=== PATIENT | male | born 1940 | race Caucasian/White ===

== ENCOUNTER 2019-10-10 13:02 | Observation (INO) | payer MEDICARE, SELFPAY ==
[2019-10-10 13:14] VITALS: BP 131/65; PULSE 80; RESP 17; TEMP 37.1; O2SAT 100
--- NOTE | 2019-10-10 13:20 | ED.GIBLEED ---
HPI - GI Bleed General Chief complaint: GI Bleed Stated complaint: abnormal labs Time Seen by Provider: 10/10/19 13:19 Source: patient Mode of arrival: ambulatory Limitations: no limitations History of Present Illness HPI Narrative: Pt is a 79 y/o male who presents to the ED with c/o melena for 2 days. Pt has been seeing his PCP for the last month for intermittent ABD pain and indigestion. Pt is supposed to get a colonoscopy tomorrow by Dr. Schafer. He states that his indigestion gets worse after eating. He denies any alleviating factors. Pt reports generalized weakness, but denies hematochezia. He also reports BLE swelling d/t his H/O CHF. Pt is on ASA 81mg, Plavix, and Coumadin as his anticoagulation therapy for his H/O AFIB and CABG. He is a non-smoker and a non-drinker. Pt is a DNR. MD complaint: melena Onset (ago): day(s) (2) Pain Consistency: constant Relieving factors: none Exacerbating factors: none Context: anticoagulant use Associated symptoms: abdominal pain, weakness and other (acid reflux) Related Data Home Medications Medication Instructions Recorded Confirmed albuterol sulfate 90 mcg/actuation 1 puff INHALATION Q4H PRN 08/27/19 aerosol inhaler ferrous sulfate 325 mg (65 mg 325 mg PO DAILY 08/27/19 iron) tablet,delayed release furosemide 40 mg tablet 40 mg PO QAM 08/27/19 losartan 100 mg tablet 100 mg PO DAILY 08/27/19 amiodarone 200 mg tablet 200 mg PO DAILY 08/28/19 aspirin 81 mg tablet,delayed 81 mg PO DAILY 08/28/19 release cholecalciferol (vitamin D3) 25 1,000 unit PO DAILY 08/28/19 mcg (1,000 unit) capsule cholestyramine (with sugar) 4 gram 4 gm PO BID 08/28/19 oral powder cyanocobalamin (vitamin B-12) 100 100 mcg PO DAILY 08/28/19 mcg tablet cyclosporine 0.05 % eye drops in a 1 drop EACH EYE Q12H 08/28/19 dropperette exenatide microspheres 2 mg/0.65 2 mg SUB-Q Q7D 08/28/19 mL subcutaneous pen injector finasteride 5 mg tablet 5 mg PO DAILY 08/28/19 fluticasone fur. 100 mcg-umeclid 1 inhalation INHALATION DAILY 08/28/19 62.5 mcg-vilant 25 mcg inhalat.powder magnesium gluconate 500 mg tablet 500 mg PO DAILY 08/28/19 metformin 500 mg tablet 500 mg PO DAILY 08/28/19 vweukowq-lnc-zpzym acid 300 1 tablet PO DAILY 08/28/19 mcg-lycopene 600 mcg-lutein 300 mcg tablet nitroglycerin 0.4 mg sublingual 0.4 mg SUBLINGUAL Q5M PRN 08/28/19 tablet omega-3 acid ethyl esters 1 gram 1 cap PO DAILY 08/28/19 capsule pantoprazole 40 mg tablet,delayed 40 mg PO QAM 08/28/19 release potassium chloride 20 mEq 20 meq PO DAILY 08/28/19 tablet,extended release roflumilast 500 mcg tablet 500 mcg PO DAILY 08/28/19 saxagliptin 5 mg tablet 5 mg PO DAILY 08/28/19 tramadol 50 mg tablet 50 mg PO Q6H PRN 08/28/19 warfarin 2 mg tablet 2 mg PO QMWF 08/28/19 Allergies Allergy/AdvReac Type Severity Reaction Status Date / Time pregabalin Allergy Unknown unk Verified 10/10/19 13:25 Review of Systems Review of Systems: All systems reviewed & are unremarkable except as noted in HPI and below Constitutional: Constitutional: Reports weakness (generalized) Cardiovascular: Cardiovascular: Reports leg edema (BLE) Gastrointestinal: Gastrointestinal: Reports abdominal pain, Reports melena, Denies hematochezia and Reports other (acid reflux) [facility] Past Medical History Medical History Afib Ankle fracture Aortic aneurysm Arthritis CAD (coronary artery disease) of artery bypass graft CHF (congestive heart failure) Chronic interstitial lung disease CLL (chronic lymphocytic leukemia) Diabetes mellitus GERD (gastroesophageal reflux disease) High cholesterol HTN (hypertension) Mixed restrictive and obstructive lung disease Myocardial infarction ROBE (obstructive sleep apnea) Pacemaker Peripheral neuropathy Pulmonary emphysema Rectal polyp TIA (transient ischemic attack) Surgical History Surgical History (Reviewed
[2019-10-10] MEDS: PANTOPRAZOLE SODIUM IV 40 MG VIAL IV PUSH ×2 (13:52→21:04)
[2019-10-10] MEDS: SODIUM CHLORIDE 0.9% IV 1,000 ML 500 ML IV CONT (13:52)
[2019-10-10 13:57] LABS: Basophils Absolute Auto 0.1 K/mm3 (0.0-0.1); Basophils Percent Auto 0.8 % (0.2-1.2); Eosinophils Absolute Auto 0.2 K/mm3 (0-0.3); Eosinophils Percent Auto 1.7 % (0-4.4); Hematocrit 28.5 % (42.0-52.0); Hemoglobin 8.5 g/dL (14.0-18.0); Immature Granulocyte Absolute 0.04 K/mm3 (0.00-0.031); Immature Granulocyte Percent A 0.4 % (0-0.5); Lymphocytes Absolute Auto 4.15 K/mm3 (0.9-3.2); Lymphocytes Percent Auto 41.8 % (18.3-44.2); Mean Corpuscular HGB Conc 29.8 g/dl (32-36); Mean Corpuscular Hemoglobin 25.1 pg (26-34); Mean Corpuscular Volume 84.1 fl (80-100); Monocytes Percent Auto 9.6 % (2.6-8.5); Neutrophils Absolute Auto 4.6 K/mm3 (1.3-6.7); Neutrophils Percent Auto 45.7 % (45.5-73.1); Platelet Count Result 262 k/mm3 (150-375); Red Blood Count 3.39 M/mm3 (4.6-6.20); Red Cell Distribution Width 15.1 % (11.5-14.5); White Blood Count 9.9 K/mm3 (4.5-10.0)
[2019-10-10 14:07] LABS: INR 1.4; Prothrombin Time 17.1 Seconds (11.1-14.7)
[2019-10-10 14:08] LABS: Partial Thromboplastin Time 33.3 SECONDS (22.3-36.8)
[2019-10-10 14:13] LABS: Alanine Aminotransferase 24 U/L (4-50); Albumin Level 4.1 g/dL (3.5-5.1); Alkaline Phosphatase 95 U/L (38-126); Aspartate Amino Transferase 31 U/L (17-59); Bilirubin,Total 1.5 mg/dL (0.2-1.3); Blood Urea Nitrogen 25 mg/dL (9-20); Calcium 9.4 mg/dL (8.4-10.2); Carbon Dioxide 24 mmol/L (22-30); Chloride 104 mmol/L (98-107); Estimated CRCL calculation 43 ml/min; Estimated Glomerular Filt Rate 58; Glucose 117 mg/dL (75-110); Potassium 3.6 mmol/L (3.4-5.0); Sodium 139 mmol/L (137-145)
[2019-10-10 14:16] LABS: Burr Cells 1+ (NORMAL); Ovalocytes 2+ (NORMAL); Platelet Estimate Adequate (Adequate)
[2019-10-10 16:00] VITALS: BP 152/79; PULSE 83; RESP 16; TEMP 36.5; O2SAT 100; BMI 25.7
--- NOTE | 2019-10-10 17:00 | ADMGEN ---
This patient, Siddharth Heredia, was admitted to Medical Room 340-01. Patient/family oriented to hospital policies and general routines including ID bracelet, bed and alarms, visiting hours, pain management, procedures, bathroom and other care routines, personal items, smoking policy, room service/diet, and visiting hours. Valuables list has been completed. Information on how to activate the Rapid Response Team has been discussed. Patient/Family are encouraged to report perceived risks to care and to ask questions if they do not understand what they are told or what they should do.
[2019-10-10 17:32] LABS: Hematocrit 26.1 % (42.0-52.0); Hemoglobin 7.9 g/dL (14.0-18.0)
[2019-10-10 18:01] VITALS: BMI 25.7
[2019-10-10 20:00] VITALS: BP 145/81; PULSE 91; RESP 16; TEMP 36.2; O2SAT 99
[2019-10-10 23:30] LABS: Hematocrit 24.5 % (42.0-52.0); Hemoglobin 7.6 g/dL (14.0-18.0)
[2019-10-11] VITALS (13 sets, daily range): BP systolic 109–168; BP diastolic 56–79; PULSE 51–88; RESP 16–18; TEMP 36–36.9; O2SAT 98–100; BMI 25.7
[2019-10-11 01:19] LABS: Glucose Point of Care 102 (65-105)
[2019-10-11 06:20] LABS: Glucose Point of Care 111 (65-105)
[2019-10-11 06:20] LABS: Basophils Absolute Auto 0.1 K/mm3 (0.0-0.1); Basophils Percent Auto 0.8 % (0.2-1.2); Eosinophils Absolute Auto 0.2 K/mm3 (0-0.3); Eosinophils Percent Auto 2.1 % (0-4.4); Hematocrit 24.6 % (42.0-52.0); Hemoglobin 7.6 g/dL (14.0-18.0); Immature Granulocyte Absolute 0.02 K/mm3 (0.00-0.031); Immature Granulocyte Percent A 0.3 % (0-0.5); Lymphocytes Absolute Auto 3.43 K/mm3 (0.9-3.2); Lymphocytes Percent Auto 45.7 % (18.3-44.2); Mean Corpuscular HGB Conc 30.9 g/dl (32-36); Mean Corpuscular Hemoglobin 25.9 pg (26-34); Mean Platelet Volume 11.1 fl (7.4-10.4); Monocytes Absolute Auto 0.7 K/mm3 (0.1-0.6); Monocytes Percent Auto 9.7 % (2.6-8.5); Neutrophils Absolute Auto 3.1 K/mm3 (1.3-6.7); Neutrophils Percent Auto 41.4 % (45.5-73.1); Platelet Count Result 223 k/mm3 (150-375); Red Blood Count 2.93 M/mm3 (4.6-6.20); Red Cell Distribution Width 15.1 % (11.5-14.5); White Blood Count 7.5 K/mm3 (4.5-10.0)
[2019-10-11 06:30] LABS: INR 1.4; Prothrombin Time 16.9 Seconds (11.1-14.7)
[2019-10-11] MEDS: PANTOPRAZOLE SODIUM IV 40 MG VIAL IV PUSH (09:11)
--- NOTE | 2019-10-11 09:35 | PC.NURSE ---
Report called to [facility].
--- NOTE | 2019-10-11 09:55 | PC.NURSE ---
To GI [facility] via [facility].
[2019-10-11] MEDS: LACTATED RINGERS 1,000 ML 150 ML IV CONT (10:27)
--- NOTE | 2019-10-11 10:32 | WPDANESEPPF ---
Anes - Initial Pre Proc Eval Procedure: Operation Date: 10/11/19 11:30 Proposed Procedures p Esophagogastroduodenoscopy - Tonio Vang MD Date/Time: 10/11/19 10:32 Surgeon: Suzanna Calvin MD Pre Op Diagnosis: Gi bleed/anemia Patient Data Age: 79 Gender: M Height: 1.73 m Weight: 76.6 kg Last Vital Signs Temp 36.0 C L 10/11/19 10:11 Pulse 88 10/11/19 10:11 Resp 16 10/11/19 10:11 BP 161/74 H 10/11/19 10:11 Pulse Ox 100 10/11/19 10:11 Allergies Allergy/AdvReac Type Severity Reaction Status Date / Time pregabalin Allergy Unknown unk Verified 10/11/19 10:09 Home Medications Medication Instructions Recorded Confirmed Type ferrous sulfate 325 mg (65 mg 325 mg PO DAILY 08/27/19 10/10/19 History iron) tablet,delayed release furosemide 40 mg tablet 40 mg PO QAM 08/27/19 10/10/19 History aspirin 81 mg tablet,delayed 81 mg PO DAILY 08/28/19 10/10/19 History release cholecalciferol (vitamin D3) 25 800 unit PO DAILY 08/28/19 10/10/19 History mcg (1,000 unit) capsule cholestyramine (with sugar) 4 gram 4 gm PO BID 08/28/19 10/10/19 History oral powder cyanocobalamin (vitamin B-12) 100 100 mcg PO DAILY 08/28/19 10/10/19 History mcg tablet finasteride 5 mg tablet 5 mg PO DAILY 08/28/19 10/10/19 History fluticasone fur. 100 mcg-umeclid 1 inhalation INHALATION DAILY 08/28/19 10/10/19 History 62.5 mcg-vilant 25 mcg inhalat.powder magnesium gluconate 500 mg tablet 500 mg PO DAILY 08/28/19 10/10/19 History sthnsvwk-klq-ithzs acid 300 1 tablet PO DAILY 08/28/19 10/10/19 History mcg-lycopene 600 mcg-lutein 300 mcg tablet nitroglycerin 0.4 mg sublingual 0.4 mg SUBLINGUAL Q5M PRN 08/28/19 10/10/19 History tablet pantoprazole 40 mg tablet,delayed 40 mg PO QAM 08/28/19 10/10/19 History release potassium chloride 20 mEq 20 meq PO DAILY 08/28/19 10/10/19 History tablet,extended release roflumilast 500 mcg tablet 500 mcg PO DAILY 08/28/19 10/10/19 History saxagliptin 5 mg tablet 5 mg PO DAILY 08/28/19 10/10/19 History tramadol 50 mg tablet 50 mg PO Q6H PRN 08/28/19 10/10/19 History warfarin 2 mg tablet 2 mg PO DAILY 08/28/19 10/10/19 History atorvastatin 40 mg PO DAILY 10/10/19 10/10/19 History carvedilol 12.5 mg PO BID 10/10/19 10/10/19 History losartan [Cozaar] 12.5 mg PO DAILY 10/10/19 10/10/19 History metformin 500 mg PO BID 10/10/19 10/10/19 History Laboratory Tests 10/10/19 10/10/19 10/10/19 13:49 13:49 13:49 WBC 9.9 K/mm3 K/mm3 (4.5-10.0) RBC 3.39 M/mm3 L M/mm3 (4.6-6.20) Hgb 8.5 g/dL L g/dL (14.0-18.0) Hct 28.5 % L % (42.0-52.0) MCV 84.1 fl fl (80-100) MCH 25.1 pg L pg (26-34) MCHC 29.8 g/dl L g/dl (32-36) RDW 15.1 % H % (11.5-14.5) Plt Count 262 k/mm3 k/mm3 (150-375) MPV 11.0 fl H fl (7.4-10.4) Immature Gran % (Auto) 0.4 % % (0-0.5) Neut % (Auto) 45.7 % % (45.5-73.1) Lymph % (Auto) 41.8 % % (18.3-44.2) [place] % (Auto) 9.6 % H % (2.6-8.5) Eos % (Auto) 1.7 % % (0-4.4) Baso % (Auto) 0.8 % % (0.2-1.2) Lymph # (Auto) 4.15 K/mm3 H K/mm3 (0.9-3.2) [place] # (Auto) 1.0 K/mm3 H K/mm3 (0.1-0.6) Eos # (Auto) 0.2 K/mm3 K/mm3 (0-0.3) Baso # (Auto) 0.1 K/mm3 K/mm3 (0.0-0.1) Abs Immat Gran (auto) 0.04 K/mm3 H K/mm3 (0.00-0.031) Absolute Neuts (auto) 4.6 K/mm3 K/mm3 (1.3-6.7) Absolute Nucleated RBC 0.0 K/mm3 K/mm3 (0.0-0.012) Nucleated RBC % 0.0 % % (0.0-0.2) Platelet Estimate Adequate (Adequate) Ovalocytes 2+ (NORMAL) Benjamin Cells 1+ (NORMAL) PT 17.1 Seconds H Seconds (11.1-14.7) INR 1.4 APTT 33.3 SECONDS SECONDS (22.3-36.8) Sodium 139 mmol/L mmol/L (137-145) Potassium 3.6 mmol/L mmol/L
[2019-10-11 12:36] LABS: Glucose Point of Care 59 (65-105)
[2019-10-11 12:36] LABS: Glucose Point of Care 79 (65-105)
[2019-10-11] MEDS: ROFLUMILAST 500 MCG TABLET PO (13:15)
[2019-10-11] MEDS: FUROSEMIDE 40 MG TABLET PO (13:15)
[2019-10-11] MEDS: FINASTERIDE 5 MG TABLET PO (13:15)
[2019-10-11] MEDS: FERROUS SULFATE 324 MG TABLET PO (13:15)
[2019-10-11] MEDS: POTASSIUM CHLORIDE 20 MEQ TABLET.ER PO (13:16)
[2019-10-11] MEDS: LOSARTAN POTASSIUM 25 MG TABLET 12.5 MG PO (13:17)
[2019-10-11] MEDS: carvediloL 12.5 MG TABLET PO (16:44)
[2019-10-11] MEDS: CHOLESTYRAMINE LIGHT 4 GM POWD.PACK PO (16:44)
--- NOTE | 2019-10-11 16:48 | WPDGICN ---
Assessment and Plan Assessment and plan (1) Acute GI bleeding: Code(s): K92.2 - Gastrointestinal hemorrhage, unspecified Status: Acute Assessment and Plan: will proceed with EGD- he has been holding his coumadin but still on aspirin and plavix. more recommendation after egd monitor for signs of bleeding, check h/h (2) Acute on chronic blood loss anemia: Code(s): D62 - Acute posthemorrhagic anemia Status: Acute (3) CAD (coronary artery disease) of artery bypass graft: Qualifiers: [place] vs. transplanted heart: [place] heart Associated angina: angina presence unspecified Qualified Code(s): I25.810 - Atherosclerosis of coronary artery bypass graft(s) without angina pectoris Code(s): I25.810 - Atherosclerosis of coronary artery bypass graft(s) without angina pectoris Status: Acute Assessment and Plan: on meds, no chest pain (4) Mixed restrictive and obstructive lung disease: Code(s): J43.9 - Emphysema, unspecified; J98.4 - Other disorders of lung Status: Acute Assessment and Plan: chronic shortness of breath (5) CLL (chronic lymphocytic leukemia): Code(s): C91.10 - Chronic lymphocytic leukemia of B-cell type not having achieved remission Status: Acute (6) Diabetes mellitus: Qualifiers: Diabetes mellitus type: type 2 Diabetes mellitus retirement insulin use: unspecified retirement insulin use status Diabetes mellitus complication status: with hyperglycemia Qualified Code(s): E11.65 - Type 2 diabetes mellitus with hyperglycemia Code(s): E11.9 - Type 2 diabetes mellitus without complications Status: Acute (7) Melena: Code(s): K92.1 - Melena Status: Acute Assessment and Plan: on ppi bid, will check with EGD today GI Consult Note Consult date/time: 10/11/19 09:30 Reason for consult: I met him just few weeks ago when he came to see me at my office because worsening gerd symptoms. He has multiple problems including CAD a/p CABG June 2019 at [facility] in [facility], COPD, ROBE, interstitial lung diseease, DM, CLL and is on aspirin, plavix and also coumadin. I was supposed to do EGD today as outpatient but last 2 days got sicker and noted dark stools, his hb was 8 range (08/2019 hb was 11) and he was admitted to the hospital. He was using at home protonix and added carafate without much relief. He told me that had EGD with colonoscopy about 2-3 years ago (had polyps). No bleeding since admission and he is npo now. He also has been holding his coumadin last 5 days in preparation for his EGD. HPI: Siddharth Heredia is a 79 year old male Review of Systems Constitutional: Constitutional: Reports fatigue and Denies headache(s) Eyes: Eyes: Denies blurry vision ENT: Reports Normal hearing present, Denies headache(s) and Denies neck pain Cardiovascular: Cardiovascular: Denies chest pain and Denies dyspnea Respiratory: Respiratory: Reports cough Gastrointestinal: Gastrointestinal: Reports no additional gastrointestinal complaints Genitourinary: Genitourinary: Denies dysuria Musculoskeletal: Musculoskeletal: Denies neck pain Integumentary/Breasts: Skin/Breast: Denies dry skin Neurologic: Reports Normal hearing present, Denies headache(s) and Denies weakness Psychiatric: Psychiatric: Denies anxiety Endocrine: Endocrine: Denies change in body appearance Hematologic/Lymphatic: Hematologic/Lymphatic: Denies easy bleeding Allergic/Immunologic: Allergic/Immunologic: Denies urticaria PMFSH Past Medical History Medical History (Updated 10/11/19 @ 16:56 by Tonio Vang MD) Acute on chronic blood loss anemia Afib Ankle fracture Aortic aneurysm Arthritis CAD (coronary artery disease) of artery bypass graft CHF (congestive heart failure) Chronic interstitial lung disease CLL (chronic lymphocytic leukemia) Diabetes mellitus GERD (gastroesophageal reflux disease) [place]
--- NOTE | 2019-10-11 16:55 | PM.IMHP ---
H&P: HPI History of Present Illness Chief complaint: Gi bleed/anemia Narrative: Siddharth Heredia is a 79 year old male, pt know to GI was meant to have ED today, pt had some melanic stool, pt came to ED for evaluation. Pt hb was 7.6. Pt had EGD under GI which showed gastritis. Pt other problems are CAD a/p CABG in June 2019, COPD, ROBE, interstitial lung disease, DM, CLL. Pt is on warfarin and aspirin. No further bleeding reported. Review of Systems Review of Systems: All systems reviewed & are unremarkable except as noted in HPI and below PMFSH Past Medical History Medical History Acute on chronic blood loss anemia Afib Ankle fracture Aortic aneurysm Arthritis CAD (coronary artery disease) of artery bypass graft CHF (congestive heart failure) Chronic interstitial lung disease CLL (chronic lymphocytic leukemia) Diabetes mellitus GERD (gastroesophageal reflux disease) High cholesterol HTN (hypertension) Melena Mixed restrictive and obstructive lung disease Myocardial infarction ROBE (obstructive sleep apnea) Pacemaker Peripheral neuropathy Pulmonary emphysema Rectal polyp TIA (transient ischemic attack) Surgical History Surgical History H/O bilateral cataract extraction H/O heart artery stent History of right inguinal hernia repair Hx of CABG 06/2019 Family History Family History Sibling Family history of malignant neoplasm Family history of pancreatic cancer Family history of lung cancer Father Family history of malignant neoplasm Family history of emphysema Mother Family history of seizure disorder Other Diabetes mellitus Social History Social History Smoking status: Former smoker Tobacco type: cigarettes and cigars Second hand tobacco smoke exposure: No Smoking end date: 10/10/19 Alcohol intake: former Substance use: never Substance use type: does not use Gender identity (if verbalized by the patient): Male Spiritual care concerns: No Agree to blood products: Yes Meds Home Medications and Allergies Home Medications Medication Instructions Recorded Confirmed Type ferrous sulfate 325 mg (65 mg 325 mg PO DAILY 08/27/19 10/10/19 History iron) tablet,delayed release furosemide 40 mg tablet 40 mg PO QAM 08/27/19 10/10/19 History aspirin 81 mg tablet,delayed 81 mg PO DAILY 08/28/19 10/10/19 History release cholecalciferol (vitamin D3) 25 800 unit PO DAILY 08/28/19 10/10/19 History mcg (1,000 unit) capsule cholestyramine (with sugar) 4 gram 4 gm PO BID 08/28/19 10/10/19 History oral powder cyanocobalamin (vitamin B-12) 100 100 mcg PO DAILY 08/28/19 10/10/19 History mcg tablet finasteride 5 mg tablet 5 mg PO DAILY 08/28/19 10/10/19 History fluticasone fur. 100 mcg-umeclid 1 inhalation INHALATION DAILY 08/28/19 10/10/19 History 62.5 mcg-vilant 25 mcg inhalat.powder magnesium gluconate 500 mg tablet 500 mg PO DAILY 08/28/19 10/10/19 History kckotqit-tac-vycfh acid 300 1 tablet PO DAILY 08/28/19 10/10/19 History mcg-lycopene 600 mcg-lutein 300 mcg tablet nitroglycerin 0.4 mg sublingual 0.4 mg SUBLINGUAL Q5M PRN 08/28/19 10/10/19 History tablet pantoprazole 40 mg tablet,delayed 40 mg PO QAM 08/28/19 10/10/19 History release potassium chloride 20 mEq 20 meq PO DAILY 08/28/19 10/10/19 History tablet,extended release roflumilast 500 mcg tablet 500 mcg PO DAILY 08/28/19 10/10/19 History saxagliptin 5 mg tablet 5 mg PO DAILY 08/28/19 10/10/19 History tramadol 50 mg tablet 50 mg PO Q6H PRN 08/28/19 10/10/19 History warfarin 2 mg tablet 2 mg PO DAILY 08/28/19 10/10/19 History atorvastatin 40 mg PO DAILY 10/10/19 10/10/19 History carvedilol 12.5 mg PO BID 10/10/19 10/10/19 History losartan [Cozaar] 12.5 mg PO DAILY 03
[2019-10-11 17:51] LABS: Glucose Point of Care 172 (65-105)
[2019-10-11] MEDS: metFORMIN HCL XR 500 MG TAB.SR.24H PO (19:09)
[2019-10-12] VITALS: BP 121/60; PULSE 77; RESP 16; TEMP 36.3; O2SAT 98
[2019-10-12 01:50] LABS: Glucose Point of Care 170 (65-105)
[2019-10-12 04:00] VITALS: BP 132/76; PULSE 75; RESP 16; TEMP 36.3; O2SAT 98
[2019-10-12 05:15] LABS: Hematocrit 25.7 % (42.0-52.0); Hemoglobin 7.9 g/dL (14.0-18.0); Mean Corpuscular HGB Conc 30.7 g/dl (32-36); Mean Corpuscular Hemoglobin 25.6 pg (26-34); Mean Corpuscular Volume 83.2 fl (80-100); Mean Platelet Volume 10.6 fl (7.4-10.4); Platelet Count Result 232 k/mm3 (150-375); Red Blood Count 3.09 M/mm3 (4.6-6.20); Red Cell Distribution Width 15.2 % (11.5-14.5); White Blood Count 9.6 K/mm3 (4.5-10.0)
[2019-10-12 05:39] LABS: Blood Urea Nitrogen 17 mg/dL (9-20); Calcium 8.6 mg/dL (8.4-10.2); Carbon Dioxide 26 mmol/L (22-30); Chloride 104 mmol/L (98-107); Estimated CRCL calculation 51 ml/min; Estimated Glomerular Filt Rate > 60; Glucose 128 mg/dL (75-110); Sodium 137 mmol/L (137-145)
--- NOTE | 2019-10-12 08:01 | WPDANESPN ---
Anes - Prog Note Post-Op Date/Time: 10/12/19 08:01 Cardiovascular status: normal Respiratory status: normal Airway patency: baseline Mental status: baseline Post-Op hydration status: normal Vital Signs: Last Vital Signs Temp 36.3 C L 10/12/19 04:00 Pulse 75 10/12/19 04:00 Resp 16 10/12/19 04:00 BP 132/76 10/12/19 04:00 Pulse Ox 98 10/12/19 04:00 I/O: Intake & Output 10/11/19 10/12/19 10/12/19 23:59 07:59 15:59 Intake Total 420 450 Output Total 200 150 Balance 220 300 Laboratory Tests 10/12/19 04:38 10/12/19 04:38 10/11/19 10/11/19 10/11/19 12:32 12:34 17:46 WBC RBC Hgb Hct MCV MCH MCHC RDW Plt Count MPV Sodium Potassium Chloride Carbon Dioxide BUN Creatinine Estim Creat Clear Calc Estimated GFR Glucose POC Capillary Glucose 59 L* 79 172 H Calcium 10/12/19 10/12/19 10/12/19 00:04 04:38 04:38 WBC 9.6 RBC 3.09 L Hgb 7.9 L Hct 25.7 L MCV 83.2 MCH 25.6 L MCHC 30.7 L RDW 15.2 H Plt Count 232 MPV 10.6 H Sodium 137 Potassium 3.0 L Chloride 104 Carbon Dioxide 26 BUN 17 Creatinine 1.00 Estim Creat Clear Calc 51 Estimated GFR > 60 Glucose 128 H POC Capillary Glucose 170 H Calcium 8.6 10/12/19 07:46 WBC RBC Hgb Hct MCV MCH MCHC RDW Plt Count MPV Sodium Potassium Chloride Carbon Dioxide BUN Creatinine Estim Creat Clear Calc Estimated GFR Glucose POC Capillary Glucose Pending Calcium Post-procedural complaints: none Patient Feedback: Patient satisfied with anesthetic care.
[2019-10-12 08:02] LABS: Glucose Point of Care 121 (65-105)
[2019-10-12 08:22] VITALS: BP 136/54; PULSE 86; RESP 18; TEMP 36.1; O2SAT 99
[2019-10-12] MEDS: POTASSIUM CHLORIDE 20 MEQ TABLET.ER PO (08:41)
[2019-10-12] MEDS: ATORVASTATIN 40 MG TABLET PO (08:41)
[2019-10-12] MEDS: metFORMIN HCL XR 500 MG TAB.SR.24H PO (08:42)
[2019-10-12] MEDS: ROFLUMILAST 500 MCG TABLET PO (08:42)
[2019-10-12] MEDS: FINASTERIDE 5 MG TABLET PO (08:42)
[2019-10-12] MEDS: FERROUS SULFATE 324 MG TABLET PO (08:42)
[2019-10-12] MEDS: CHOLECALCIFEROL 400 UNITS TABLET (VIT D) 800 UNITS PO (08:42)
[2019-10-12] MEDS: PANTOPRAZOLE 40 MG TABLET PO (08:42)
[2019-10-12] MEDS: CYANOCOBALAMIN 250 MCG TABLET PO (08:43)
[2019-10-12] MEDS: FUROSEMIDE 40 MG TABLET PO (08:43)
[2019-10-12] MEDS: LOSARTAN POTASSIUM 25 MG TABLET 12.5 MG PO (08:44)
[2019-10-12 08:45] VITALS: PULSE 84
[2019-10-12] MEDS: carvediloL 12.5 MG TABLET PO (08:45)
[2019-10-12] MEDS: OPTI-GEN TAB 1 TABLET PO (08:46)
[2019-10-12 12:04] LABS: Glucose Point of Care 114 (65-105)
--- NOTE | 2019-10-12 14:30 | PM.DS ---
DS: Diagnosis Admitting Diagnosis Admitting Diagnosis: Gastrointestinal hemorrhage, unspecified Discharge Diagnosis (1) Melena: Code(s): K92.1 - Melena Status: Resolved Assessment and Plan: SP EGD which showed gastritis (2) Acute GI bleeding: Code(s): K92.2 - Gastrointestinal hemorrhage, unspecified Status: Resolved Assessment and Plan: Sp EGD which showed gastritis (3) Anemia: Qualifiers: Anemia type: unspecified type Qualified Code(s): D64.9 - Anemia, unspecified Code(s): D64.9 - Anemia, unspecified Status: Acute Assessment and Plan: Hb likely related to chronic disease, pt is on asa, plavix and warfarin and gastritis- discussion with GI MD, pt can stop asa will discuss stopping warfarin with his enrollment representative. pt states he has been on his plavix for 6 months and warfarin for @5 years (4) CLL (chronic lymphocytic leukemia): Code(s): C91.10 - Chronic lymphocytic leukemia of B-cell type not having achieved remission Status: Acute Assessment and Plan: Chronic problem may be contributing to Anemia (5) Pulmonary emphysema: Code(s): J43.9 - Emphysema, unspecified Status: Acute Assessment and Plan: Continue to watch for any SOB (6) Diabetes mellitus: Qualifiers: Diabetes mellitus type: type 2 Diabetes mellitus ferry terminal supervisor insulin use: unspecified mcc insulin use status Diabetes mellitus complication status: with hyperglycemia Qualified Code(s): E11.65 - Type 2 diabetes mellitus with hyperglycemia Code(s): E11.9 - Type 2 diabetes mellitus without complications Status: Acute Assessment and Plan: Home medications, accuchecks, SSI (7) CAD (coronary artery disease) of artery bypass graft: Qualifiers: [place] vs. transplanted heart: [place] heart Associated angina: angina presence unspecified Qualified Code(s): I25.810 - Atherosclerosis of coronary artery bypass graft(s) without angina pectoris Code(s): I25.810 - Atherosclerosis of coronary artery bypass graft(s) without angina pectoris Status: Acute Assessment and Plan: Chronic and stable (8) History of tobacco abuse: Code(s): Z87.891 - Personal history of nicotine dependence Status: Acute Assessment and Plan: Adviced to quit smoking DS: Summary Time Spent with Patient Time attestation: Total time spent providing and/or coordinating discharge services:38 minutes on day of discharge Exam Const: General: cooperative HENMT: Head: normocephalic Eyes: General: appearance normal, both eyes and all related structures Pupils: Equal, round and reactive pupils present Neck: Neck: supple Chest: Chest palpation & inspection: other (CABG scar ) Resp: Effort & Inspection: normal respiratory effort Auscultation: clear to auscultation bilaterally Cardio: Jugular venous distension: no JVD Rhythm: regular rhythm Heart sounds: S1 normal heart sound present and S2 normal heart sound present GI: Inspection: normal to inspection Auscultation: normal bowel sounds Skin: General skin exam: normal color and dry skin Neuro: Cranial nerves: Yes CN's II-XII intact bilaterally and Yes Equal, round and reactive pupils present Cognition (Neuro): normal cognition Speech: normal speech Motor exam (neuro): 5/5 motor strength present throughout Extrem: General: normal to inspection Psych: Appearance: grossly normal Mental Status: mental status grossly normal DS: Data Data Completed and Pending Pending studies at discharge: Pending at discharge 10/11/19 12:04 Surgical [PTH] Routine Labs on day of discharge: Labs from last 24 hours 10/12/19 10/12/19 10/12/19 12:02 07:46 04:38 WBC RBC Hgb Hct MCV MCH MCHC RDW Plt Count MPV Sodium 137 Potassium 3.0 L Chloride 104 Carbon Dioxide 26 BUN 17 Creatinine 1.00
== END 2019-10-12 12:30 | disposition home or self-care (01) ==
LOC: ANH3MED 17:28 → ANHED 17:28
PROVIDERS: Internal Medicine Gastroenterology; Admitting Provider Hospitalist; Emergency Provider Emergency Medicine; PCP Internal Medicine; Visit Provider Family Medicine
PROC: 0DJ08ZZ Inspection of Upper Intestinal Tract, Via Natural or Artificial Opening Endoscopic (ICD-10-PCS; CPT 43235; principal; 2019-10-11 11:30)
DX: K29.51 Unspecified chronic gastritis with bleeding (principal); D62 Acute posthemorrhagic anemia; K21.9 Gastro-esophageal reflux disease without esophagitis; I48.91 Unspecified atrial fibrillation; I25.810 Atherosclerosis of coronary artery bypass graft(s) without angina pectoris; I11.0 Hypertensive heart disease with heart failure; I50.9 Heart failure, unspecified; C91.10 Chronic lymphocytic leukemia of B-cell type not having achieved remission; E11.42 Type 2 diabetes mellitus with diabetic polyneuropathy; E11.65 Type 2 diabetes mellitus with hyperglycemia; J43.9 Emphysema, unspecified; J98.4 Other disorders of lung; G47.33 Obstructive sleep apnea (adult) (pediatric); Z66 Do not resuscitate; Z79.01 Long term (current) use of anticoagulants; Z79.82 Long term (current) use of aspirin; Z79.84 Long term (current) use of oral hypoglycemic drugs; Z79.899 Other long term (current) drug therapy; Z87.19 Personal history of other diseases of the digestive system; Z86.73 Personal history of transient ischemic attack (TIA), and cerebral infarction without residual deficits; Z87.891 Personal history of nicotine dependence; Z95.1 Presence of aortocoronary bypass graft; Z95.5 Presence of coronary angioplasty implant and graft
CPT/HCPCS: 43239; 36415; 80048; 80053; 85014; 85018; 85025; 85027; 85610; 85730; 86850; 86900; 86901; 88305; 96361; 96374; 96376; 99285; A9270; C9113; G0378; J2704; J7030; J7120

== ENCOUNTER 2020-01-21 08:18 | Outpatient (CLI) | payer MEDICARE, SELFPAY ==
--- NOTE | ~2020-01-21 | CT_ITS ---
EXAMINATION: CT chest high resolution [facility] EXAM DATE: 01/21/2020 08:51 INDICATION: Interstitial lung disease. TECHNIQUE: Spiral CT of the chest without contrast. HRCT. Axial, coronal and sagittal images were re viewed. Coronal maximum intensity pixel images of chest reviewed. The dose-length product (DLP) for this examination was 210.87 mGy-cm. The exposure was tailored according to patient size (auto mA ex posure control), and iterative reconstruction (ASIR) was used as additional dose reduction technique. There is no prior study for comparison. FINDINGS: No intralobular septal thickening on the HRCT. There is mild to moderate emphysema. Small a mount of linear by basilar atelectasis. There are no pleural or pericardial effusions. Tracheobron chial tree is patent. There is no mediastinal, hilar or axillary lymphadenopathy. There is no pne umothorax. Borderline cardiomegaly. There are sternotomy wires, and cardiac/coronary surgical dong ges. Correlate with prior history. Left-sided pacemaker/AICD device. The abdominal aorta is mildly an eurysmal at the aortic hiatus up to 3.6 cm. Upper abdomen is unremarkable. There is moderate thora cic spondylosis without osteoblastic or osteolytic lesions identified. Patient has diffuse idiopathic skeletal hyperostosis (DISH). IMPRESSION: 1. Mild to moderate emphysema. 2. Bibasilar subsegmental atelectasis. Reviewed, dictated and finalized at location B.
== END 2020-01-21 08:19 | disposition home or self-care (01) ==
PROVIDERS: PCP Internal Medicine; Visit Provider Internal Medicine Critical Care Medicine
DX: J84.9 Interstitial pulmonary disease, unspecified (principal); J43.9 Emphysema, unspecified; J98.11 Atelectasis
CPT/HCPCS: 71250

== ENCOUNTER 2021-11-04 09:27 | Outpatient (CLI) | payer MEDICARE, SELFPAY ==
--- NOTE | ~2021-11-04 | XR_ITS ---
EXAMINATION: XR chest 2V DATE: 11/04/2021 10:38 INDICATION: Shortness of breath TECHNIQUE: PA and lateral views of the chest were obtained. COMPARISON: Chest CT dated 01/21/2020 FINDINGS: Mild hyperexpansion of lungs with increased lucency in the upper lung zones consistent with mild emph ysema but appreciated on prior CT. Mild right apical pleural-parenchymal scarring. Mild linear atelec tasis/scarring at the bilateral lung bases. No pulmonary edema, pneumothorax or pleural effusion. Bor derline cardiomegaly. Median sternotomy wires and mediastinal surgical clips are seen, likely from pr ior coronary artery bypass grafting. Dual lead pacemaker seen with leads projecting over the expected locations of the right atrium and right ventricle. There are bridging osteophytes at multiple levels in the spine, consistent with diffuse idiopathic skeletal hyperostosis (DISH). IMPRESSION: 1. Mild emphysema with mild right apical pleural-parenchymal scarring and mild streaky atelectasis/sc arring at the bilateral lung bases. 2. Borderline cardiomegaly. Reviewed, dictated and finalized at location B. IMPRESSION: 1. Mild emphysema with mild right apical pleural-parenchymal scarring and mild streaky atelectasis/scarring at the bilateral lung bases. 2. Borderline cardiomegaly.
--- NOTE | 2021-11-04 12:47 | WPDPFTINT ---
PFT Procedure Performed PFT Procedure Performed Spirometry with Pre/Post Bronchodilator Plethysmography (Lung Vol) Diffusing Cap (DLCO) Flow Vol Loop PFT Interpretation This is a pulmonary function test with pre and post-bronchodilator spirometry, plethysmography and diffusing capacity. The test was performed and results interpreted in accordance with the 2019 and 2005 ATS/ERS Task Force guidelines respectively using the Global Lung Function Initiative-2012 reference equations. Patient demonstrated good effort and cooperation. Reproducibility criteria were met. The quality of the pre bronchodilator spirometry maneuver was Grade A and post bronchodilator spirometry maneuver was Grade A. Findings: Spirometry: There is decreased maximal expiratory airflow at all lung volumes with a concave expiratory flow tracing. The contour the inspiratory flow tracing is normal. The pre bronchodilator FVC is 3.09 L, 85% predicted. The pre bronchodilator FEV1 is 1.89 L, 71% predicted. The FEV1: FVC ratio 61%. The post bronchodilator FVC is 3.11 L, representing 1% increase. The post bronchodilator FEV1 is 1.97 L, representing a 4% increase. The post bronchodilator FEV1: FVC ratio is 63%. Plethysmography: The total lung capacity is 5.51 L, 83% predicted. The functional residual capacity is 3.82 L, 106% predicted. The residual volume is 2.43 L, 94% predicted. Diffusing capacity: The diffusing capacity unadjusted for hemoglobin and carboxyhemoglobin is 12.3, 54% predicted. The diffusing capacity adjusted for alveolar volume is 3.10 L, 84% predicted. In comparison to previous pulmonary function test on 09/29/2018 the post bronchodilator FVC has increased from 2.59 L to 3.11 L. The post bronchodilator FEV1 has increased from 1.39 L to 1.97 L. The total lung capacity has increased from 4.01 L to 5.51 L. The functional residual capacity has increased from 2.49 L to 3.82 L. The residual volume has increased from 1.45 L to 2.43 L. The diffusing capacity unadjusted for hemoglobin and carboxyhemoglobin is unchanged from 11.3 to 12.3. The diffusing capacity adjusted for alveolar volume has decreased from 3.94 to 3.10. Impression: There is a mild obstructive abnormality without significant improvement after inhaling a single dose of albuterol. The lung volumes are normal. The diffusing capacity unadjusted for hemoglobin and carboxyhemoglobin is moderately decreased and normalizes when adjusted for alveolar volume. In comparison to prior pulmonary function test on 09/29/2018 there has been a greater than anticipated time dependent increase in the FVC, FEV1, total lung capacity, functional residual capacity, residual volume and a greater than anticipated time dependent decrease in the diffusing capacity adjusted for alveolar volume with no change in the diffusing capacity unadjusted for hemoglobin and carboxyhemoglobin. Clinical correlation is recommended. There are no prior studies for comparison
== END 2021-11-04 09:28 | disposition home or self-care (01) ==
PROVIDERS: PCP Internal Medicine; Visit Provider Internal Medicine Critical Care Medicine
DX: R06.02 Shortness of breath (principal); R94.2 Abnormal results of pulmonary function studies; J43.9 Emphysema, unspecified
CPT/HCPCS: 71046; 94060; 94726; 94729

== ENCOUNTER 2023-07-18 13:06 | Emergency (ER) | payer MEDICARE, SELFPAY ==
--- NOTE | ~2023-07-18 | XR_ITS ---
EXAMINATION: XR chest 1V INDICATION: Bilateral lower limb edema TECHNIQUE: AP view of the chest is obtained. COMPARISON: 11/04/2021 FINDINGS: There are small pleural effusions, left greater than right. There are associated airspace o pacities of the lung bases. No pneumothorax is identified. The cardiomediastinal silhouette is stable . A dual-lead cardiac pacemaker of the left chest wall ends with leads in expected locations. Median sternotomy wires and mediastinal surgical clips are seen, likely from prior coronary artery bypass gr afting. IMPRESSION: 1. Small pleural effusions with associated airspace opacities of the lung bases, consistent with atel ectasis versus pneumonia. Reviewed, dictated and finalized at location B. TRONICS SCALE TESTER IMPRESSION: 1. Small pleural effusions with associated airspace opacities of the lung bases , consistent with atelectasis versus pneumonia.
--- NOTE | ~2023-07-18 | US_ITS ---
EXAMINATION:US venous doppler LE BI INDICATION:Leg swelling TECHNIQUE: Multiple grayscale, color flow and Doppler images of the lower extremity deep venous syste ms were obtained and reviewed. COMPARISON: FINDINGS: The common femoral, superficial femoral and popliteal veins demonstrate normal respiratory variation, augmentation and compressibility. Color flow is also seen within the greater saphenous an d profunda veins. The posterior tibial and peroneal veins are not visualized due to edema. IMPRESSION: 1: No lower extremity deep venous thrombosis. Limited study. Reviewed, dictated and finalized at location A. ND MANAGER
[2023-07-18 13:09] VITALS: BP 151/63; PULSE 74; RESP 18; TEMP 36.8; O2SAT 97
[2023-07-18 13:26] LABS: Glucose Point of Care 96 mg/dl (65-105)
--- NOTE | 2023-07-18 14:04 | ED.RECABL ---
HPI - Recheck/Abnormal Lab/Rx General Chief Complaint: Recheck/Abnormal Lab/Rx Stated Complaint: high blood sugar Time Seen by Provider: 07/18/23 17:02 Source: patient and family Mode of arrival: ambulatory Limitations: no limitations History of Present Illness HPI narrative: Patient is an 83 y/o male, with PMH of DM, anemia, who presents to the ED with report of hyperglycemia. Patient is currently a resident of a local rehab facility. He has hx of DM and is on metformin and januvia. Per [place] report, patient's BG was tested prior to arrival and was > 600. Son was contacted and advised to bring patient to the hospital. Patient states his BG has never been that high before, no previous Hx of DKA. He did not receive any insulin. BG upon arrival 96. Patient does c/o N/V today after eating breakfast. He denies current nausea or abdominal pain. Also reports lower extremity swelling, swelling in arms. Patient is not on any diuretic therapy. Son denies previous hx of CHF. Denies lower extremity pain. Per son, patient was recently admitted to [facility] in [place], [place] for electrolyte abnormalities, specifically Mg/K. Son reports at least a 30 lb weight gain d/t the swelling since his hospitalization. Patient was also diagnosed with Cdiff during his hospitalization and is currently on Dificid. Related Data Home Medications Medication Instructions Recorded Confirmed aspirin 81 mg tablet,delayed 81 mg PO DAILY 08/26/20 06/20/23 release (Adult Aspirin Regimen) melatonin 10 mg capsule 10 mg PO QHS 10/20/21 06/20/23 nitroglycerin 0.4 mg sublingual 0.4 mg sublingual Q5M PRN 10/20/21 06/20/23 tablet omega-3s 300 yg-gtf-nrd-other cap PO 10/20/21 06/20/23 [id number] oil 1,000 mg capsule ([place]-3 Fish Oil) multivitamin (Multiple Vitamins 1 tablet PO DAILY 05/10/22 06/20/23 tablet) alpha lipoic acid 600 mg capsule 600 mg PO DAILY 06/16/22 06/20/23 prochlorperazine maleate 10 mg 10 mg PO Q6H PRN 06/16/22 06/20/23 tablet isosorbide mononitrate 60 mg 60 mg PO DAILY 10/20/22 06/20/23 tablet,extended release 24 hr L.acidophilus-B.animalis-B.longum 1 cap PO DAILY 12/07/22 06/20/23 15 billion cell capsule (Florajen Digestion) ascorbic acid (vitamin C) 500 mg mg PO DAILY 12/07/22 06/20/23 capsule carboxymethylcellulose 0.5 1 drp EACH EYE QHS 12/07/22 06/20/23 %-glycerin 0.9 % eye drops (Refresh Relieva) cholecalciferol (vitamin D3) 25 50 mcg PO DAILY 12/07/22 06/20/23 mcg (1,000 unit) capsule cyclosporine 0.05 % eye drops 1 drp EACH EYE Q12H 12/07/22 06/20/23 (Restasis MultiDose) ferrous sulfate 325 mg (65 mg 325 mg PO BID 12/07/22 06/20/23 iron) tablet,delayed release vibegron 75 mg tablet (Gemtesa) 75 mg PO DAILY 12/07/22 06/20/23 Allergies Allergy/AdvReac Type Severity Reaction Status Date / Time pregabalin Allergy Severe Swelling Verified 07/21/23 07:57 spironolactone AdvReac gynecomasti Verified 07/21/23 07:57 a Review of Systems Review of Systems: CONSTITUTIONAL: Denies fever, chills, or sweats. CARDIOVASCULAR: See HPI. RESPIRATORY: Denies cough or dyspnea. GASTROINTESTINAL: See HPI. GENITOURINARY: Denies dysuria or hematuria. MUSCULOSKELETAL: See HPI. All systems reviewed & are unremarkable except as noted in HPI and below [facility] Past Medical History Medical History (Updated 07/19/23 @ 13:39 by Zoie Lake PA-C) Acute on chronic blood loss anemia Afib Ankle fracture Aortic aneurysm infrarenal 4.9x4.7x4.0 cm. 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
[2023-07-18 14:07] VITALS: BP 130/67; PULSE 87; RESP 19; TEMP 36.5; O2SAT 98
[2023-07-18 15:01] LABS: Basophils Percent Auto 0.6 % (0.2-1.2); Eosinophils Absolute Auto 0.1 K/mm3 (0-0.3); Eosinophils Percent Auto 1.3 % (0-4.4); Hematocrit 29.1 % (42.0-52.0); Hemoglobin 8.6 g/dL (14.0-18.0); INR 1.2; Immature Granulocyte Absolute 0.03 K/mm3 (0.00-0.031); Immature Granulocyte Percent A 0.5 % (0-0.5); Lymphocytes Absolute Auto 0.71 K/mm3 (0.9-3.2); Lymphocytes Percent Auto 11.3 % (18.3-44.2); Mean Corpuscular HGB Conc 29.6 g/dl (32-36); Mean Corpuscular Hemoglobin 28.2 pg (26-34); Mean Corpuscular Volume 95.4 fl (80-100); Mean Platelet Volume 10.5 fl (7.4-10.4); Monocytes Absolute Auto 0.4 K/mm3 (0.1-0.6); Monocytes Percent Auto 5.9 % (2.6-8.5); Neutrophils Absolute Auto 5.1 K/mm3 (1.3-6.7); Neutrophils Percent Auto 80.4 % (45.5-73.1); Platelet Count Result 238 k/mm3 (150-375); Prothrombin Time 16.2 Seconds (11.1-14.7); Red Blood Count 3.05 M/mm3 (4.6-6.20); Red Cell Distribution Width 20.2 % (11.5-14.5); White Blood Count 6.3 K/mm3 (4.5-10.0)
[2023-07-18 15:02] LABS: Partial Thromboplastin Time 35.6 SECONDS (22.3-36.8)
[2023-07-18 15:07] LABS: Alanine Aminotransferase 17 U/L (6-50); Albumin Level 2.8 g/dL (3.5-5.1); Alkaline Phosphatase 96 U/L (38-126); Anion Gap 5 mmol/L (8-16); Aspartate Amino Transferase 21 U/L (17-59); Bilirubin,Total 1.8 mg/dL (0.2-1.3); Blood Urea Nitrogen 7 mg/dL (9-20); Calcium 9.2 mg/dL (8.4-10.2); Carbon Dioxide 23 mmol/L (22-30); Chloride 108 mmol/L (98-107); Estimated CRCL calculation 59 ml/min; Estimated Glomerular Filt Rate > 60; Glucose 90 mg/dL (65-110); Magnesium 1.7 mg/dL (1.6-2.3); Potassium 3.7 mmol/L (3.4-5.0); Sodium 136 mmol/L (137-145)
[2023-07-18 15:11] LABS: Beta-Hydroxybutyrate/Acetoacetate 0.29 mmol/L (0.02-0.27)
[2023-07-18 15:15] LABS: NT Pro B Type Natriuretic Pept 6950 pg/mL (19.9-100)
[2023-07-18 15:29] LABS: Platelet Estimate Adequate (Adequate)
[2023-07-18 15:31] LABS: Hypochromasia 1+ (NORMAL); Schistocytes None Seen (NORMAL)
[2023-07-18 15:32] LABS: Anisocytosis 3+ (NORMAL)
--- NOTE | 2023-07-18 17:33 | ECG_ITS ---
Measurements Intervals [place] Rate: 72 P: AR: 0 QRS: -57 QRSD: 124 T: -61 QT: 440 QTc: 484 Interpretive Statements ATRIAL FIBRILLATION LEFT ANTERIOR FASCICULAR BLOCK [QRS AXIS <= -45, QR IN I, RS IN II] POSSIBLE ANTERIOR MYOCARDIAL INFARCTION , PROBABLY OLD [30 ms Q WAVE IN V3/V4, OR R < 0.2 mV IN V4] NO PREVIOUS ECG AVAILABLE FOR COMPARISON Electronically Signed On 07-19-2023 13:25:48 ACCOUNT MANAGER [employer]EFITS by Maria Esther Jay M.D.
--- NOTE | 2023-07-18 17:35 | ED.RECABL ---
HPI - Recheck/Abnormal Lab/Rx General Chief Complaint: Recheck/Abnormal Lab/Rx Stated Complaint: high blood sugar Time Seen by Provider: 07/18/23 17:02 Source: patient and family Mode of arrival: ambulatory Limitations: no limitations History of Present Illness HPI narrative: 83 Year old male with a history of sick sinus syndrome with a pacemaker in place, cardiomyopathy, C diff which is currently being treated by GI specialist with Dificid, coronary artery disease, hypertension, CLL (not undergoing current chemo or radiation), chronic interstitial lung disease, ROBE reports with his son/POA, Rodri, at bedside for elevated blood sugar today. Patient son provides the following history. He states he went to fruit picker his father from the [facility] ([facility]) earlier today for a appointment he was told by the nurse that his blood glucose was 570 this morning. The patient's PCP, Mandi Lake, then contacted the patient's son and advised him to take the patient to the ED for further evaluation. In triage, the patient's blood glucose here was found to be 96 without intervention. The patient is also reporting lower extremity edema for the past few weeks. He was recently admitted to [facility] was discharged on July 13. The patient is on thinks he was admitted for hypomagnesemia. The patient is also reporting nausea, vomiting and diarrhea which has been ongoing and intermittent for the past year. He did have an episode of emesis this morning while taking his pills. He denies aspiration. Patient's son also states the patient has been jaundiced for the past few months. His oncologist is Dr. Puente -the patient is an appointment this week for follow-up. The patient reports generalized weakness for the past 3 years, however the son states that he feels like the weakness has worsened in the past month. He ambulates with a walker. The patient denies chest pain, shortness of breath, cough or congestion, fever, abdominal pain, dysuria or hematuria, fever. Please see SANTHOSH Downey, note from triage. Related Data Home Medications Medication Instructions Recorded Confirmed aspirin 81 mg tablet,delayed 81 mg PO DAILY 08/26/20 06/20/23 release (Adult Aspirin Regimen) melatonin 10 mg capsule 10 mg PO QHS 10/20/21 06/20/23 nitroglycerin 0.4 mg sublingual 0.4 mg sublingual Q5M PRN 10/20/21 06/20/23 tablet omega-3s 300 kb-smr-pfz-other cap PO 10/20/21 06/20/23 [id number] oil 1,000 mg capsule ([place]-3 Fish Oil) multivitamin (Multiple Vitamins 1 tablet PO DAILY 05/10/22 06/20/23 tablet) alpha lipoic acid 600 mg capsule 600 mg PO DAILY 06/16/22 06/20/23 prochlorperazine maleate 10 mg 10 mg PO Q6H PRN 06/16/22 06/20/23 tablet isosorbide mononitrate 60 mg 60 mg PO DAILY 10/20/22 06/20/23 tablet,extended release 24 hr L.acidophilus-B.animalis-B.longum 1 cap PO DAILY 12/07/22 06/20/23 15 billion cell capsule (Florajen Digestion) ascorbic acid (vitamin C) 500 mg mg PO DAILY 12/07/22 06/20/23 capsule carboxymethylcellulose 0.5 1 drp EACH EYE QHS 12/07/22 06/20/23 %-glycerin 0.9 % eye drops (Refresh Relieva) cholecalciferol (vitamin D3) 25 50 mcg PO DAILY 12/07/22 06/20/23 mcg (1,000 unit) capsule cyclosporine 0.05 % eye drops 1 drp EACH EYE Q12H 12/07/22 06/20/23 (Restasis MultiDose) ferrous sulfate 325 mg (65 mg 325 mg PO BID 12/07/22 06/20/23 iron) tablet,delayed release vibegron 75 mg tablet (Gemtesa) 75 mg PO DAILY 12/07/22 06/20/23 Allergies Allergy/AdvReac Type Severity Reaction Status Date / Time pregabalin Allergy Severe Swelling Verified 06/20/23 10:30 Most Recent Cardiac Tests: Chest X-Ray 07/18/23 Pulmonary Function Test 11/04/21 Review of Systems Review of Systems: CONSTITUTIONAL: Denies fever, chills, or sweats. EYES: Denies visual changes, redness, or discharge. ENT: Denies rhinorrhea, congestion, sore throat, or otalgia. CARDIOVASCULAR: Denies chest irene
[2023-07-18 18:01] LABS: Troponin I < 0.012 ng/mL (0.000-0.034)
--- NOTE | 2023-07-18 18:08 | ECG_ITS ---
Measurements Intervals [place] Rate: 74 P: [place]: 0 QRS: -59 QRSD: 126 T: -70 QT: 429 QTc: 478 Interpretive Statements ATRIAL FIBRILLATION LEFT ANTERIOR FASCICULAR BLOCK [QRS AXIS <= -45, QR IN I, RS IN II] POSSIBLE ANTERIOR MYOCARDIAL INFARCTION , PROBABLY OLD [30 ms Q WAVE IN V3/V4, OR R < 0.2 mV IN V4] COMPARED TO ECG 07/18/2023 17:50:28 NO SIGNIFICANT CHANGES Electronically Signed On 07-19-2023 13:26:49 HULL INSPECTOR by Maria Esther Jay M.D.
[2023-07-18] MEDS: FUROSEMIDE INJ 40 MG/4 ML VIAL IV PUSH (18:30)
[2023-07-18 18:38] LABS: Influenza A QL RT-PCR Negative (Negative); Influenza B QL RT-PCR Negative (Negative); RSV RNA, RT-PCR Negative (Negative); SARS-CoV-2 RNA PCR Negative (Negative)
[2023-07-18 18:39] VITALS: O2SAT 98
[2023-07-18 18:46] VITALS: BP 154/78; PULSE 72; RESP 14; O2SAT 100
[2023-07-18 18:48] VITALS: O2SAT 98
[2023-07-18 18:49] LABS: INR 1.3; Prothrombin Time 16.8 Seconds (11.1-14.7)
[2023-07-18 18:51] LABS: Partial Thromboplastin Time 36.7 SECONDS (22.3-36.8)
[2023-07-18 18:52] VITALS: BP 154/78; PULSE 77; RESP 16; O2SAT 100
[2023-07-18 19:09] LABS: Appearance Urine Clear (Clear); Bilirubin Urine Negative (Negative); Blood Urine Negative (Negative); Color Urine Yellow (Yellow); Glucose Urine UA Negative (Negative); Ketones Urine Trace mg/dL (Negative); Leukocyte Esterase Ur Negative LEU/UL (Negative); Nitrate Urine Negative (Negative); Protein Urine Negative (Negative); Specific Grav Ur 1.015 (1.001-1.035); Urobilinogen Urine 0.2 mg/dL (<2.0); pH Urine 5.5 (5.0-9.0)
[2023-07-18 20:18] LABS: Add Urine Microscopic? NO
== END 2023-07-18 20:06 | disposition home or self-care (01) ==
PROVIDERS: Physician Assistant; Emergency Provider Physician Assistant; PCP Physician Assistant Medical
DX: R60.9 Edema, unspecified (principal); I48.91 Unspecified atrial fibrillation; J90 Pleural effusion, not elsewhere classified; D64.9 Anemia, unspecified; L30.9 Dermatitis, unspecified; R78.9 Finding of unspecified substance, not normally found in blood; M19.90 Unspecified osteoarthritis, unspecified site; I25.10 Atherosclerotic heart disease of native coronary artery without angina pectoris; I11.0 Hypertensive heart disease with heart failure; I50.9 Heart failure, unspecified; E11.9 Type 2 diabetes mellitus without complications; K21.9 Gastro-esophageal reflux disease without esophagitis; I25.2 Old myocardial infarction; Z20.822 Contact with and (suspected) exposure to COVID-19; Z79.01 Long term (current) use of anticoagulants; G47.30 Sleep apnea, unspecified
CPT/HCPCS: 36415; 71045; 80053; 81003; 82010; 82948; 83735; 83880; 84484; 85025; 85610; 85730; 86850; 86900; 86901; 87637; 93005; 93970; 96374; 99284; J1940